=== PATIENT | female | born 1945 | race Caucasian/White ===

== ENCOUNTER 2017-07-02 21:55 | Inpatient (IN) | payer MEDICARE ==
[~2017-07-02] VITALS: Ht 157.5 cm; Wt 68.0 kg
--- NOTE | ~2017-07-02 | EKG ---
PATIENT: PRANEETH SILVA UNIT #: [id number] Ventricular Rate: 87 BPM Atrial Rate: 87 BPM P-R Interval: 152 ms QRS Duration: 84 ms Q-T Interval: 384 ms QTC Calculation(Bezet): 462 ms P Blackburn: 58 degrees Calculated R Blackburn: -18 degrees Calculated T Blackburn: 25 degrees Diagnosis Line: Normal sinus rhythm Diagnosis Line: Possible Left atrial enlargement Diagnosis Line: Inferior infarct , age undetermined Diagnosis Line: Abnormal ECG Diagnosis Line: No previous ECGs available Diagnosis Line: Confirmed by LYNNETTE OSPINA MD ([id number]) on Diagnosis Line: 07/03/2017 12:39:54 PM INTERPRETING MD: BHAVESH HENRIQUEZ
--- NOTE | ~2017-07-02 | CT71 ---
[facility] A Service of [facility] RADIOLOGY TEXT RESULTS PATIENT: PRANEETH SILVA LOCATION: [facility] 473-01 : 46 UNIT #: [id number] AGE: [address]: Veto Escobedo MD SEX: F ORDER DR: [id number] [facility] [address]. [place], [place] [address] [id number] I MR#: [id number] #: [id number] NAME: PRANEETH SILVA. : 1945 SEX: F STUDY DATE/TIME: 07/03/2017 0:05 UNIT: [facility] ROOM: [facility] STUDY DESCRIPTION: CT Head Wo Contrast Attending Physician: Veto Escobedo M.D. Ordering Physician: Jose Roberto Domínguez M.D. Primary Care Physician: Manuela Biggs M.D. MEDICAL IMAGING REPORT This report is preliminary unless electronic signature is present EXAM CT head, noncontrast, 06/22/1939 19:17. HISTORY 72-year-old female in the ED with new onset acute mental status changes, disorientation, hallucinations today. Reported intermittent confusion over the last six months. TECHNIQUE CT examination of the head without IV contrast. This CT exam was performed with one or more of the following radiation dose reduction techniques: Automatic exposure control, adjustment of mA and/or kV according to patient size, and iterative reconstruction. FINDINGS No acute intracranial abnormality is identified. Mild generalized cerebral cortical atrophy. Moderate diffuse low-attenuation white matter changes, greatest in the periventricular regions, nonspecific but likely related to chronic small vessel disease. No evidence of intracranial hemorrhage, mass, mass effect, cerebral edema or additional abnormality. No comparison studies have been performed here. IMPRESSION 1. No acute intracranial abnormality is identified. 2. Tlks-en-gfseseml diffuse chronic changes as noted above. Dictated by... Aidan Ramirez M.D. THIS IS AN ELECTRONICALLY VERIFIED REPORT Aidan Ramirez M.D. at 07/03/2017 9:58 PM [facility] A Service of [facility] RADIOLOGY TEXT RESULTS PATIENT: PRANEETH SILVA LOCATION: [facility] 473-01 : 46 UNIT #: [id number] AGE: [address]: Veto Escobedo MD SEX: F ORDER DR: JORY/kvng TD: 07/03/2017 10:15 JOB #: [id number] MEDICAL IMAGING REPORT Page 1 of 1 COPY
--- NOTE | ~2017-07-02 | DS ---
Unit #: [id number] #: [id number] Patient: PRANEETH SILVA [id number] [address] [place], [place] [address] [id number] MR#: [id number] NAME: PRANEETH SILVA. ROOM: 473 Age: 72 Sex: F Admission Date: 07/03/2017 : 1945 Discharge Date: 07/03/2017 Attending Physician: Veto Escobedo M.D. Primary Care Physician: Manuela Biggs M.D. DISCHARGE SUMMARY CHIEF COMPLAINT "Crazy." HISTORY OF PRESENT ILLNESS Patient is a 72-year-old female, who really denies any medical problems except for chronic pain and anxiety, who has had a three-week history of intermittent "confusion." When I asked the patient to describe what is going on, she deferred to her sister. She would apparently have periods of incoherent speech. It was not really slurred speech. There was no focal weakness, paraesthesias, no seizure-like activity. She would just be somewhat confused. This usually happened at night. The patient really cannot add to that history. She does take hydrocodone four times a day. She was taking Xanax multiple times a day and Ambien on a nightly basis. When I tried to determine the exact timing of her medications, she was very vague and her sister had to correct her multiple times. She tells me she stopped taking her Xanax within the last few days. Again, she denies headache, fever, focal weakness, paraesthesias, seizure-like activity, etc. She has not sought medical attention for this. Of note, in 2004 she was admitted [address] Dr. Tolentino to this institution with slurred speech and staggering. PAST MEDICAL HISTORY She denies any type of past medical history on initial history. Later in the interview, she said she had "a leaky heart valve." No lung disease, cancer, otherwise no heart disease. She has chronic pain, some anxiety, and chronic insomnia. MEDICATIONS On her med rec sheet, simvastatin is listed but it is unclear if she is taking that. Medications at home: She told me she was only taking her hydrocodone four times a day and Ambien nightly. Med rec sheet states she is on: Vitamin D, Xanax, and simvastatin. ALLERGIES No known medical allergies. SOCIAL HISTORY Does not smoke. Does not drink. Does not do recreational drugs. 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 FAMILY HISTORY No familial lung disease. REVIEW OF SYSTEMS Unit #: [id number] #: [id number] Patient: PRANEETH SILVA No fever, chills, shortness of breath, wheezing, sputum production, abdominal pain, melena, hematochezia, hematemesis, hematuria, dysuria. No focal weakness, paresthesias. She does have some chronic leg pain for which she takes hydrocodone. She has chronic insomnia for which she takes Ambien. She does snore. She has restless sleep. The daughter says she occasionally will complain of indigestion but the patient did not offer this as a problem. PHYSICAL EXAMINATION GENERAL: Reveals a patient who is in no acute distress on room air, eating lunch. VITAL SIGNS: She is afebrile. Pulse 78, respiratory rate 20, blood pressure 136/88. Height 5 foot 2 inches, 150 pounds. BMI is 27. HEENT: Pupils equal, round, and reactive to light. Sclerae anicteric. Head atraumatic. Mallampati class IV oropharynx. She has dentures. NECK: Supple. No supraclavicular or cervical adenopathy appreciated. CHEST: Clear. No wheeze, stridor, consolidation. CARDIAC: Reveals a regular rate and rhythm. No pathologic murmur, rub, or gallop. ABDOMEN: Obese, soft, nontender. No hepatomegaly or rebound. EXTREMITIES: Reveal no clubbing, cyanosis, or edema. No calf tenderness. SKIN: Warm and dry without rash or diaphoresis. NEUROLOGIC: Grossly intact. No focal muscle or sensory deficit. She states she can perform all activities of daily living. DIAGNOSTIC STUDIES LABORATORY: BUN is 11, creatinine 1.2. Remainder of her CMP was negative. Cardiac enzymes negative. CBC normal. Urinalysis 10-25 red cells, 100-200 white cells, 1+ bacteria. Blood cultures pending. Urine culture pending. IMAGING: Chest x-ray report unremarkable. No active disease. CT head report: No active disease. CARDIOVASCULAR: EKG: Sinus rhythm. No acute ischemic changes. IMPRESSION 1. Altered mental status: Mainly by sister's history. It is subacute and suggests to me a combination of polypharmacy and urinary tract infection. 2. Abnormal urinalysis consistent with urinary tract infection. 3. Chronic pain on hydrocodone. 4. Chronic insomnia on Ambien. 5. Snoring and restless sleep, suspect sleep apnea. PLAN At this point in time, I think she has improved. She has been observed. She has had no further episodes of altered mental status. She has received treatment for urinary tract infection and I suspect she will continue to do well. I have discussed with her the possibility of going home and she would like to go home. She will be treated with oral antibiotics in the form of Bactrim DS one tablet twice a day for five days, and I have asked her to followup with Dr. Biggs or Dr. Ag to recheck urine and followup on urine cultures. Certainly, if she has further episodes of altered mental status further evaluation may be needed. She states she has stopped her Xanax and I have suggested that she continue to not take that. I have suggested that she stop her Ambien. Unit #: [id number] #: [id number] Patient: PRANEETH SILVA It is known to have multiple unusual effects. I would suggest outpatient nocturnal polysomnography. I have discussed the pathophysiology of sleep apnea including some of its health risks. I have discussed the diagnostic process and therapeutic options including CPAP and she agrees to proceed with evaluation. Hopefully, if she has significant sleep apnea interfering with her ability to fall asleep and stay asleep, diagnosis and treatment may help her get off Ambien. If not, we could consider formal cognitive behavioral therapy for her insomnia. Thank you very much for allowing me to participate in the care of Ms. Sivla. Dictated by... Veto Escobedo M.D. JIMBO/epifanio TD: 07/03/2017 14:12 JOB #: [id number] DISCHARGE SUMMARY Page 1 of 1 X Veto Escobedo MD X DISCHARGE SUMMARY
--- NOTE | ~2017-07-02 | CR72 ---
[facility] A Service of [facility] RADIOLOGY TEXT RESULTS PATIENT: PRANEETH SILVA [facility] 473-01 : 46 UNIT #: [id number] AGE: [address]: Veto Escobedo MD SEX: F ORDER DR: [id number] [facility] [address] [place], [place] [address] [id number] I MR#: [id number] Acc #: [id number] NAME: PRANEETH SILVA. : 1945 SEX: F STUDY DATE/TIME: 07/02/2017 22:27 UNIT[facility] ROOM: [facility] STUDY DESCRIPTION: CR Chest Single View Portable Attending Physician: Veto Escobedo M.D. Ordering Physician: Jose Roberto Domínguez M.D. Primary Care Physician: Manuela Biggs M.D. MEDICAL IMAGING REPORT This report is preliminary unless electronic signature is present EXAM Chest x-ray: 07/02/2017 HISTORY 72-year-old female in the ED complaining of 6-month history of shortness of air with activity, dyspnea on exertion, now worsening. Acute mental status changes. TECHNIQUE AP portable upright chest x-ray. FINDINGS No definite active disease in the chest. Shallow lung expansion with mild bibasilar pulmonary atelectasis. No visible airspace consolidation, pneumothorax or pleural effusion. Heart size and pulmonary vascularity are within normal limits. IMPRESSION No active disease. Shallow lung expansion. Dictated by... Aidan Ramirez M.D. THIS IS AN ELECTRONICALLY VERIFIED REPORT Aidan Ramirez M.D. at 07/03/2017 9:58 PM RGW/wendy TD: 07/03/2017 08:37 JOB #: [id number] MEDICAL IMAGING REPORT Page 1 of 1 COPY
[~2017-07-02 21:55] MED LIST: HYDROCODONE-APA1 T33 PO; ZESTORETIC 20/11 TAB PO
[2017-07-02 22:58] LABS: BASOPHIL% 0.6 % (0-2.5); EOSINOPHIL# 0.2 X10e3 (0-0.7); EOSINOPHIL% 2.5 % (0.0-7.0); HEMATOCRIT 36.3 % (35.0-45.0); HEMOGLOBIN 12.6 gm/dL (12.0-16.0); LYMPHOCYTE# 2.4 X10e3 (1.0-3.5); MEAN CELL VOLUME 90.8 FL (83-96); MEAN CORPUSCULAR HEMOGLOBIN 31.6 PG (28-34); MEAN CORPUSCULAR HGB CONC 34.8 g/dL (30-36); MEAN PLATELET VOLUME 7.9 FL (6.5-11.5); MONOCYTE# 0.6 X10e3 (0-1.0); MONOCYTE% 7.4 % (3.0-12.0); NEUTROPHIL# 5.3 X10e3 (1.5-7.1); NEUTROPHIL% 61.5 % (40-75); PLATELET COUNT 241 X10e3 (140-420); WHITE BLOOD COUNT 8.5 X10e3 (4.0-10.5)
[2017-07-02 22:59] LABS: DIFF IND NO
[2017-07-02 23:16] LABS: POC - CKMB <1.0 ng/mL (0.0-7.9); POC - TROPONIN <0.05 ng/mL (<=0.05)
[2017-07-02 23:17] LABS: URINE APPEARANCE CLOUDY; URINE BILIRUBIN NEG (NEG); URINE BLOOD 2+ (NEG); URINE COLOR YELLOW; URINE GLUCOSE NEG (NEG); URINE KETONE NEG (NEG); URINE LEUKOCYTE ESTERASE 3+ (NEG); URINE NITRATE NEG (NEG); URINE PH 5.5 (5-8); URINE PROTEIN TRACE (NEG)
[2017-07-02] MEDS ORDERED: LASIX20 MG PO (23:18)
[2017-07-02] MEDS ORDERED: ZYLOPRIM100 MG PO (23:18)
[2017-07-02] MEDS ORDERED: ACID CONTROL150 M1 PO (23:18)
[2017-07-02] MEDS ORDERED: CLOPIDOGREL75 MG PO (23:19)
[2017-07-02] MEDS ORDERED: AMLODIPINE BESYL5 MG PO (23:19)
[2017-07-02] MEDS ORDERED: ASPIRIN81 MG PO (23:19)
[2017-07-02 23:20] LABS: CULTURE INDICATED? YES; URINE BACTERIA AUWI 1+ (NEGATIVE); URINE SQUAMOUS EPITHELIAL CELL FEW /[HPF]; UWBCS1 AUWI 100-200 (0-5)
[2017-07-02] MEDS ORDERED: COREG3.125 MG PO (23:20)
[2017-07-02] MEDS ORDERED: ADVAIR 250-501 EAC1 INH (23:20)
[2017-07-02] MEDS ORDERED: SIMVASTATIN20 MG PO (23:20)
[2017-07-02] MEDS ORDERED: ALB/IPRATROPIUM/1 E1 INH (23:21)
[2017-07-02 23:22] LABS: U HYALINE CASTS AUWI 0-2 /[LPF]
[2017-07-02] MEDS ORDERED: B-121000 MC3 PO (23:22)
[2017-07-02] MEDS ORDERED: PROAIR RESPICL90 MCG INH (23:22)
[2017-07-02] MEDS ORDERED: FOLIC ACID1 MG PO (23:22)
[2017-07-02] MEDS ORDERED: FERROUS GLUCON324 M1 PO (23:23)
[2017-07-02] MEDS ORDERED: PROBIOTIC1 EAC1 PO (23:23)
[2017-07-02] MEDS ORDERED: BENTYL10 MG PO (23:24)
[2017-07-02 23:29] LABS: ALBUMIN SERUM 3.7 g/dL (3.5-5.0); ALKALINE PHOSPHATASE 73 U/L (32-92); ALT (SGPT) 25 U/L (10-40); AST (SGOT) 29 U/L (10-42); BILIRUBIN, DIRECT 0.1 mg/dL (0.0-0.2); BILIRUBIN,INDIRECT 0.4 mg/dL (0.0-0.9); BILIRUBIN,TOTAL 0.5 mg/dL (0.2-2.0); BLOOD UREA NITROGEN 11 mg/dL (9-23); BUN/CREATININE RATIO 9.16; CALCIUM SERUM 8.9 mg/dL (8.4-10.2); CARBON DIOXIDE 27 mmol/L (22-31); CHLORIDE 101 mmol/L (100-111); CREATININE SERUM 1.2 mg/dL (0.6-1.4); GLOM FILT RATE Estimated 45.4 mL/min (>60); GLUCOSE FASTING 113 mg/dL (70-110); POTASSIUM 3.6 mmol/L (3.5-5.1); SODIUM 137 mmol/L (135-145)
[2017-07-02 23:31] LABS: ALCOHOL BLOOD <5 mg/dL ([, 0])
[2017-07-03] MEDS ORDERED: VITAMIN D400 UNI2 PO (03:47)
[2017-07-03] MEDS ORDERED: XODOL 7.5-3001 EACH PO (03:47)
[2017-07-03] MEDS ORDERED: AMBIEN10 MG PO (03:48)
[2017-07-03] MEDS ORDERED: SIMVASTATIN40 MG PO (03:48)
[2017-07-03] MEDS ORDERED: XANAX0.5 MG PO (03:48)
[2017-07-03] MEDS ORDERED: BACTRIM DS TAB1 EACH PO (14:11)
== END 2017-07-03 14:48 | disposition home or self-care (01) | DRG 690 ==
LOC: CED 21:55 → CEDOF 07-03 01:06 → C4C 07-03 01:06
PROVIDERS: Emergency Medicine
DX: N39.0 Urinary tract infection, site not specified (principal); R06.83 Snoring; F51.04 Psychophysiologic insomnia; G89.29 Other chronic pain; R41.82 Altered mental status, unspecified; T50.905A Adverse effect of unspecified drugs, medicaments and biological substances, initial encounter
CPT/HCPCS: 36415; 70450; 71010; 80048; 80076; 81003; 82553; 82947; 84484; 85025; 87040; 87086; 93005; 99285; G0480; J0696